=== PATIENT | female | born 1980 | race Caucasian/White ===

== ENCOUNTER 2016-09-22 16:46 | Emergency (ER) | payer OTHER ==
[~2016-09-22] VITALS: Ht 154.9 cm; Wt 63.2 kg
[2016-09-22 18:47] LABS: HEMATOCRIT 37.9 % (36.0-46.0); MCH 31.3 PG (29.0-34.0); MCHC 34.6 G/DL (30.0-36.0); MCV 90.7 FL (83-99); RBC DIS.WIDTH-CV 12.1 % (11.8-14.6); RBC DIS.WIDTH-SD 40.3 % (39-53); RED BLOOD COUNT 4.18 M/uL (3.80-5.20); WHITE BLOOD COUNT 12.5 K/uL (4.1-10.2)
[2016-09-22 18:58] LABS: CHLORIDE 105 mEq/L (99-109); SODIUM 137 mEq/L (136-147)
[2016-09-22 19:00] LABS: GLUCOSE 108 mg/dL (70-99)
[2016-09-22 19:01] LABS: ANION GAP 7 MEQ/L (2-14)
[2016-09-22 19:04] LABS: GFR ESTIMATE (CALCULATED) > 59 mL/min/
[2016-09-22 19:05] LABS: UREA NITROGEN (BUN) 13 mg/dL (9-23)
[2016-09-22 19:29] LABS: QUANTITATIVE HCG 86674.4 MIU/ML
[2016-09-22 19:36] LABS: HEMATOLOGY COMMENT 1 SN; PLAT.SUFFICIENCY ADEQUATE; PLATELET COUNT 231 K/uL (156-360)
[2016-09-22 20:09] LABS: ADD MIUA? YES; BILIRUBIN NEGATIVE; BLOOD MODERATE; COLOR YELLOW ((YELLOW)); GLUCOSE (STRIP) NEGATIVE; KETONES NEGATIVE; LEUKOCYTES NEGATIVE; NITRITE NEGATIVE; PROTEIN (STRIP) NEGATIVE; SPECIFIC GRAVITY 1.021 (1.000-1.030)
[2016-09-22 20:13] LABS: BACTERIA NONE SEEN /HPF; CALCIUM OXALATE CRYSTALS 1+ /HPF; EPITHELIAL CELLS RARE /HPF; MUCUS TRACE /LPF; RED BLOOD CELLS 0-5 /HPF (0-5); WHITE BLOOD CELLS 0-5 /HPF (0-5)
[2016-09-22 20:59] VITALS: BP 100/65
== END 2016-09-22 21:00 | disposition home or self-care (01) ==
LOC: EME 16:46
PROVIDERS: Physician Assistant
DX: O20.9 Hemorrhage in early pregnancy, unspecified (principal); Z3A.10 10 weeks gestation of pregnancy; O26.21 Pregnancy care for patient with recurrent pregnancy loss, first trimester
CPT/HCPCS: 76801; 80048; 81003; 84702; 85027; 99281; 99283

== ENCOUNTER 2017-02-11 10:29 | Outpatient (CLI) | payer OTHER ==
[~2017-02-11] VITALS: Ht 154.9 cm; Wt 71.4 kg
[2017-02-11 10:34] VITALS: BP 114/60
[2017-02-11 12:01] LABS: EOSINOPHIL (%) 1.1 % (0-5); EOSINOPHIL COUNT 0.2 K/uL (0-0.3); HEMATOCRIT 30.6 % (36.0-46.0); IMMATURE GRANULOCYTE COUNT 0.2 K/uL; INSTRUMENT ABS NEUTROPHIL CT 11.9 K/uL; LYMPHOCYTE COUNT 2.2 K/uL (1.0-2.8); MCH 31.5 PG (29.0-34.0); MCHC 34.3 G/DL (30.0-36.0); MCV 91.9 FL (83-99); MEAN PLAT.VOLUME 11.1 uM^3 (9.5-12.4); MONOCYTE (%) 3.6 % (3-12); MONOCYTE COUNT 0.5 K/uL (0-0.8); NEUTROPHIL (%) 79.6 % (45-76); NEUTROPHIL COUNT 11.9 K/uL (1.8-6.4); PLATELET COUNT 266 K/uL (156-360); RBC DIS.WIDTH-CV 12.4 % (11.8-14.6); RBC DIS.WIDTH-SD 41.3 % (39-53); RED BLOOD COUNT 3.33 M/uL (3.80-5.20); WHITE BLOOD COUNT 14.9 K/uL (4.1-10.2)
[2017-02-11 12:14] VITALS: BP 92/48
[2017-02-11 12:20] LABS: AMPHETAMINE NEGATIVE (500 ng/mL); BARBITURATES NEGATIVE (200 ng/mL); BENZODIAZEPINES NEGATIVE (150 ng/mL); COCAINE NEGATIVE (150 ng/mL); INTERNAL CONTROLS VALID? YES; METHADONE NEGATIVE (200 ng/mL); METHAMPHETAMINE NEGATIVE (500 ng/mL); OPIATES (MORPHINE) NEGATIVE (100 ng/mL); OXYCODONE NEGATIVE (100 ng/mL); PHENCYCLIDINE NEGATIVE (25 ng/mL); PROPOXYPHENE NEGATIVE (300 ng/mL); THC CANNABINOIDS NEGATIVE (50 ng/mL); TRICYCLIC ANTIDEPRESSANTS NEGATIVE (300 ng/mL)
[2017-02-11 12:40] VITALS: BP 110/55
[2017-02-11 14:04] VITALS: BP 89/51
[2017-02-13 13:12] LABS: CHLAMYDIA TRACHOMATIS NEGATIVE; NEISSERIA GONORRHOEAE NEGATIVE
== END 2017-02-11 14:35 | disposition short-term general hospital (02) ==
LOC: LDRP-OP → 2WEST 10:30 → LDRP-OP 05-24 14:10
PROVIDERS: Obstetrics & Gynecology
DX: O42.913 Preterm premature rupture of membranes, unspecified as to length of time between rupture and onset of labor, third trimester (principal); O34.219 Maternal care for unspecified type scar from previous cesarean delivery; Z3A.31 31 weeks gestation of pregnancy; O09.293 Supervision of pregnancy with other poor reproductive or obstetric history, third trimester; O09.523 Supervision of elderly multigravida, third trimester
CPT/HCPCS: 59025; 76805; 80306 90; 85025; 87086; 87491; 87591; G0378; J0290; J0702; J7050; J7120

== ENCOUNTER 2017-02-18 17:12 | Inpatient (IN) | payer OTHER ==
[~2017-02-18] VITALS: Ht 154.9 cm; Wt 70.0 kg
[2017-02-18 18:09] LABS: HEMATOCRIT 32.9 % (36.0-46.0); MCH 31.3 PG (29.0-34.0); MCV 91.9 FL (83-99); MEAN PLAT.VOLUME 10.9 uM^3 (9.5-12.4); PLATELET COUNT 326 K/uL (156-360); RBC DIS.WIDTH-CV 12.3 % (11.8-14.6); RED BLOOD COUNT 3.58 M/uL (3.80-5.20); WHITE BLOOD COUNT 20.1 K/uL (4.1-10.2)
[2017-02-18 18:37] LABS: ABS NEUTROPHIL COUNT 16.1; ATYPICAL LYMPHOCYTE 4.6 %; BAND NEUTROPHILS 1.8 % (0-8.0); EOSINOPHIL ABS CT 0.2; EOSINOPHILS 0.9 % (0-5.0); INSTRUMENT ABS NEUTROPHIL CT 14.7 K/uL; LYMPHOCYTES 11.8 % (15.0-45.0); METAMYELOCYTES 1.8 %; MYELOCYTES 0.9 %; SEG.NEUTROPHILS 78.2 % (46.0-76.0)
[2017-02-18 20:21] VITALS: BP 107/56
[2017-02-18 22:33] VITALS: BP 114/61
[2017-02-19] VITALS (8 sets, daily range): BP systolic 87–112; BP diastolic 45–67
[2017-02-19 19:59] LABS: HEMATOCRIT 31.3 % (36.0-46.0); MCH 30.5 PG (29.0-34.0); MCHC 33.5 G/DL (30.0-36.0); MEAN PLAT.VOLUME 10.9 uM^3 (9.5-12.4); PLATELET COUNT 333 K/uL (156-360); RBC DIS.WIDTH-CV 12.4 % (11.8-14.6); RBC DIS.WIDTH-SD 40.7 % (39-53); RED BLOOD COUNT 3.44 M/uL (3.80-5.20); WHITE BLOOD COUNT 19.2 K/uL (4.1-10.2)
[2017-02-19 20:28] LABS: ABS NEUTROPHIL COUNT 14.6; ATYPICAL LYMPHOCYTE 6.2 %; BAND NEUTROPHILS 13.3 % (0-8.0); EOSINOPHIL ABS CT 0.2; EOSINOPHILS 0.9 % (0-5.0); HYPOCHROMASIA 2+; INSTRUMENT ABS NEUTROPHIL CT 13.8 K/uL; LYMPHOCYTES 12.4 % (15.0-45.0); METAMYELOCYTES 1.8 %; MYELOCYTES 0.9 %; PLAT.SUFFICIENCY ADEQUATE; SEG.NEUTROPHILS 62.8 % (46.0-76.0)
[2017-02-20 03:00] VITALS: BP 102/46
[2017-02-20 08:15] VITALS: BP 100/84
[2017-02-20 11:27] VITALS: BP 102/56
[2017-02-20 15:34] VITALS: BP 93/54
[2017-02-20 19:55] VITALS: BP 101/57
[2017-02-20 20:31] LABS: HEMATOCRIT 31.5 % (36.0-46.0); MCH 31.6 PG (29.0-34.0); MCV 92.9 FL (83-99); MEAN PLAT.VOLUME 10.8 uM^3 (9.5-12.4); PLATELET COUNT 308 K/uL (156-360); RBC DIS.WIDTH-CV 12.6 % (11.8-14.6); RBC DIS.WIDTH-SD 42.6 % (39-53); RED BLOOD COUNT 3.39 M/uL (3.80-5.20); WHITE BLOOD COUNT 17.4 K/uL (4.1-10.2)
[2017-02-20 21:18] LABS: ABS NEUTROPHIL COUNT 13.6; ANISOCYTOSIS 1+; BAND NEUTROPHILS 10.5 % (0-8.0); EOSINOPHIL ABS CT 0; HYPOCHROMASIA 1+; INSTRUMENT ABS NEUTROPHIL CT 12.2 K/uL; LYMPHOCYTES 12.3 % (15.0-45.0); METAMYELOCYTES 0.9 %; MICROCYTOSIS 1+; MYELOCYTES 0.9 %; PLAT.SUFFICIENCY ADEQUATE; SEG.NEUTROPHILS 67.5 % (46.0-76.0)
[2017-02-20 23:00] VITALS: BP 86/50
[2017-02-21 03:00] VITALS: BP 87/48
[2017-02-21 08:00] VITALS: BP 86/50
[2017-02-21 10:54] VITALS: BP 98/53
[2017-02-21 15:10] VITALS: BP 101/58
[2017-02-21 19:27] LABS: BASOPHIL COUNT 0.1 K/uL (0-0.1); EOSINOPHIL (%) 0.8 % (0-5); EOSINOPHIL COUNT 0.1 K/uL (0-0.3); HEMATOCRIT 31.9 % (36.0-46.0); IMMATURE GRANULOCYTE (%) 4.9 % (0.0-0.7); IMMATURE GRANULOCYTE COUNT 0.9 K/uL; LYMPHOCYTE COUNT 3.4 K/uL (1.0-2.8); MCH 30.9 PG (29.0-34.0); MCHC 33.9 G/DL (30.0-36.0); MCV 91.1 FL (83-99); MEAN PLAT.VOLUME 10.6 uM^3 (9.5-12.4); MONOCYTE (%) 5.9 % (3-12); MONOCYTE COUNT 1.1 K/uL (0-0.8); NEUTROPHIL (%) 69.8 % (45-76); PLATELET COUNT 336 K/uL (156-360); RBC DIS.WIDTH-CV 12.7 % (11.8-14.6); RBC DIS.WIDTH-SD 41.3 % (39-53); WHITE BLOOD COUNT 18.6 K/uL (4.1-10.2)
[2017-02-21 19:59] VITALS: BP 102/61
[2017-02-21 23:07] VITALS: BP 86/48
[2017-02-22] VITALS (7 sets, daily range): BP systolic 74–121; BP diastolic 37–60
[2017-02-23 03:25] VITALS: BP 99/48
[2017-02-23 07:32] VITALS: BP 91/51
[2017-02-23 12:00] VITALS: BP 86/50
[2017-02-23 16:00] VITALS: BP 103/51
[2017-02-24 07:26] LABS: BASOPHIL COUNT 0.1 K/uL (0-0.1); EOSINOPHIL (%) 1.3 % (0-5); EOSINOPHIL COUNT 0.3 K/uL (0-0.3); IMMATURE GRANULOCYTE (%) 4.2 % (0.0-0.7); IMMATURE GRANULOCYTE COUNT 0.8 K/uL; INSTRUMENT ABS NEUTROPHIL CT 13.4 K/uL; LYMPHOCYTE COUNT 3.2 K/uL (1.0-2.8); MCH 31.6 PG (29.0-34.0); MCHC 33.5 G/DL (30.0-36.0); MCV 94.2 FL (83-99); MEAN PLAT.VOLUME 10.9 uM^3 (9.5-12.4); MONOCYTE (%) 4.8 % (3-12); MONOCYTE COUNT 0.9 K/uL (0-0.8); NEUTROPHIL (%) 72.1 % (45-76); NEUTROPHIL COUNT 13.4 K/uL (1.8-6.4); PLATELET COUNT 290 K/uL (156-360); RBC DIS.WIDTH-SD 44.2 % (39-53); RED BLOOD COUNT 3.29 M/uL (3.80-5.20); WHITE BLOOD COUNT 18.5 K/uL (4.1-10.2)
[2017-02-24 08:06] VITALS: BP 98/53
[2017-02-24 11:04] VITALS: BP 88/52
[2017-02-24 15:01] VITALS: BP 88/52
[2017-02-24 23:08] VITALS: BP 113/55
[2017-02-25 09:23] VITALS: BP 103/60
[2017-02-25 13:03] LABS: POINT-OF-CARE METER ID UU13113692
[2017-02-25 13:03] LABS: POINT-OF-CARE METER ID UU13113692
[2017-02-25 13:47] VITALS: BP 108/54
[2017-02-25 15:47] VITALS: BP 104/56
[2017-02-25 16:11] LABS: POINT-OF-CARE METER ID UU13113692
[2017-02-25 23:43] LABS: POINT-OF-CARE METER ID UU13113692
[2017-02-26 08:18] VITALS: BP 77/39
[2017-02-26 10:38] LABS: POINT-OF-CARE METER ID UU13113801
[2017-02-26 10:47] VITALS: BP 105/53
[2017-02-26 11:52] LABS: POINT-OF-CARE METER ID UU13113801
[2017-02-26 14:44] LABS: POINT-OF-CARE METER ID UU13113801
[2017-02-26 14:50] VITALS: BP 106/58
[2017-02-26 19:25] VITALS: BP 111/55
[2017-02-26 22:48] LABS: POINT-OF-CARE METER ID UU13113801
[2017-02-26 23:10] VITALS: BP 102/59
[2017-02-27 03:48] VITALS: BP 77/46
[2017-02-27 07:39] LABS: EOSINOPHIL (%) 0 % (0-5); HEMATOCRIT 31.4 % (36.0-46.0); IMMATURE GRANULOCYTE (%) 2.8 % (0.0-0.7); IMMATURE GRANULOCYTE COUNT 0.5 K/uL; INSTRUMENT ABS NEUTROPHIL CT 14.2 K/uL; LYMPHOCYTE COUNT 1.5 K/uL (1.0-2.8); MCH 31.3 PG (29.0-34.0); MCHC 34.1 G/DL (30.0-36.0); MCV 91.8 FL (83-99); MEAN PLAT.VOLUME 10.9 uM^3 (9.5-12.4); MONOCYTE (%) 0.9 % (3-12); MONOCYTE COUNT 0.1 K/uL (0-0.8); NEUTROPHIL (%) 87.3 % (45-76); NEUTROPHIL COUNT 14.2 K/uL (1.8-6.4); PLATELET COUNT 294 K/uL (156-360); RBC DIS.WIDTH-CV 13.2 % (11.8-14.6); RBC DIS.WIDTH-SD 42.3 % (39-53); RED BLOOD COUNT 3.42 M/uL (3.80-5.20); WHITE BLOOD COUNT 16.3 K/uL (4.1-10.2)
[2017-02-27 07:42] VITALS: BP 101/53
[2017-02-27 12:10] VITALS: BP 142/69
[2017-02-27 14:43] VITALS: BP 113/67
[2017-02-27 19:12] VITALS: BP 106/62
[2017-02-27 23:04] VITALS: BP 104/51
[2017-02-28 03:23] VITALS: BP 85/48
[2017-02-28 06:58] VITALS: BP 80/44
[2017-02-28 10:35] VITALS: BP 96/54
[2017-02-28 15:38] VITALS: BP 105/55
[2017-02-28 19:30] VITALS: BP 110/59
[2017-02-28 22:48] VITALS: BP 116/54
[2017-03-01 03:00] VITALS: BP 90/44
[2017-03-01 08:58] VITALS: BP 85/50
[2017-03-01 11:18] VITALS: BP 109/56
[2017-03-01 14:54] VITALS: BP 92/50
[2017-03-01 23:00] VITALS: BP 104/59
[2017-03-02 02:58] VITALS: BP 90/51
[2017-03-02 07:00] LABS: BASOPHIL COUNT 0.1 K/uL (0-0.1); EOSINOPHIL (%) 1.3 % (0-5); EOSINOPHIL COUNT 0.2 K/uL (0-0.3); HEMATOCRIT 31.4 % (36.0-46.0); IMMATURE GRANULOCYTE (%) 2.3 % (0.0-0.7); IMMATURE GRANULOCYTE COUNT 0.4 K/uL; INSTRUMENT ABS NEUTROPHIL CT 10.5 K/uL; LYMPHOCYTE COUNT 3.3 K/uL (1.0-2.8); MCH 30.8 PG (29.0-34.0); MCHC 33.8 G/DL (30.0-36.0); MCV 91.3 FL (83-99); MEAN PLAT.VOLUME 10.9 uM^3 (9.5-12.4); MONOCYTE (%) 4.8 % (3-12); MONOCYTE COUNT 0.7 K/uL (0-0.8); NEUTROPHIL (%) 69.4 % (45-76); NEUTROPHIL COUNT 10.5 K/uL (1.8-6.4); PLATELET COUNT 275 K/uL (156-360); RBC DIS.WIDTH-CV 13.5 % (11.8-14.6); RBC DIS.WIDTH-SD 44.5 % (39-53); RED BLOOD COUNT 3.44 M/uL (3.80-5.20); WHITE BLOOD COUNT 15.1 K/uL (4.1-10.2)
[2017-03-02 07:47] VITALS: BP 108/56
[2017-03-02 10:58] VITALS: BP 107/57
[2017-03-02 14:28] VITALS: BP 104/58
[2017-03-02 19:17] VITALS: BP 112/58
[2017-03-02 22:31] VITALS: BP 103/53
[2017-03-03 02:37] VITALS: BP 94/48
[2017-03-03 10:03] VITALS: BP 115/63
[2017-03-03 15:26] VITALS: BP 95/50
[2017-03-03 22:28] VITALS: BP 117/59
[2017-03-04] VITALS (8 sets, daily range): BP systolic 94–111; BP diastolic 50–64
[2017-03-05 02:56] VITALS: BP 88/44
[2017-03-05 06:20] LABS: EOSINOPHIL (%) 0.3 % (0-5); EOSINOPHIL COUNT 0.1 K/uL (0-0.3); HEMATOCRIT 26.3 % (36.0-46.0); IMMATURE GRANULOCYTE COUNT 0.2 K/uL; INSTRUMENT ABS NEUTROPHIL CT 14.2 K/uL; LYMPHOCYTE COUNT 2.9 K/uL (1.0-2.8); MCH 30.3 PG (29.0-34.0); MCHC 33.1 G/DL (30.0-36.0); MCV 91.6 FL (83-99); MEAN PLAT.VOLUME 11.2 uM^3 (9.5-12.4); MONOCYTE (%) 5.8 % (3-12); MONOCYTE COUNT 1.1 K/uL (0-0.8); NEUTROPHIL (%) 76.8 % (45-76); NEUTROPHIL COUNT 14.2 K/uL (1.8-6.4); PLATELET COUNT 249 K/uL (156-360); RBC DIS.WIDTH-CV 13.4 % (11.8-14.6); RBC DIS.WIDTH-SD 43.9 % (39-53); RED BLOOD COUNT 2.87 M/uL (3.80-5.20); WHITE BLOOD COUNT 18.5 K/uL (4.1-10.2)
[2017-03-05 08:50] VITALS: BP 90/53
[2017-03-05 11:02] VITALS: BP 87/52
[2017-03-05 15:06] VITALS: BP 97/47
[2017-03-06 09:00] VITALS: BP 115/59
[2017-03-06 11:29] VITALS: BP 93/53
[2017-03-06 16:26] VITALS: BP 93/54
[2017-03-06 20:27] VITALS: BP 99/57
[2017-03-06 23:04] VITALS: BP 106/56
[2017-03-07 03:59] VITALS: BP 99/56
[2017-03-07 19:28] VITALS: BP 109/64
[2017-03-07 23:25] VITALS: BP 115/59
[2017-03-08 02:59] VITALS: BP 98/57
[2017-03-08] MEDS ORDERED: ENDOCET 5-3251 EACH PO (08:48)
[2017-03-08] MEDS ORDERED: PRENATAL VITAM1 EAC6 PO (08:48)
[2017-03-08] MEDS ORDERED: IBUPROFEN800 MG PO (08:48)
== END 2017-03-08 16:48 | disposition home or self-care (01) | DRG 765 ==
LOC: LDRP-OP 17:12 → 2WEST 17:13 → LDRP-OP 05-16 14:49
PROVIDERS: Advanced Practice Midwife; Obstetrics & Gynecology
PROC: 10D00Z1 Extraction of Products of Conception, Low, Open Approach (ICD-10-PCS; principal; 2017-02-18)
DX: O60.14X0 Preterm labor third trimester with preterm delivery third trimester, not applicable or unspecified (principal); O34.219 Maternal care for unspecified type scar from previous cesarean delivery; O42.913 Preterm premature rupture of membranes, unspecified as to length of time between rupture and onset of labor, third trimester; O99.02 Anemia complicating childbirth; D50.9 Iron deficiency anemia, unspecified; N73.6 Female pelvic peritoneal adhesions (postinfective); O99.89 Other specified diseases and conditions complicating pregnancy, childbirth and the puerperium; O26.86 Pruritic urticarial papules and plaques of pregnancy (PUPPP); Z3A.32 32 weeks gestation of pregnancy; Z37.0 Single live birth; L29.9 Pruritus, unspecified; D62 Acute posthemorrhagic anemia
CPT/HCPCS: 76818; 82948; 85025; 85025 91; 86850; 86900; 86901; 88307; C1726; C1894; C2625; G0378; J0690; J0702; J1050; J1100; J1200; J2270; J2274; J2405; J7120; Q0177